=== PATIENT | male | born 1955 ===

== ENCOUNTER → 2016-05-06 | Outpatient (CLI) | payer BC ==
--- NOTE | 2016-05-06 17:01 | DX ---
Right Hip, Two Views History: Acute right hip pain. Findings: No acute fracture or dislocation identified. The right hip demonstrates no evidence of a definite femoral head or neck fracture. No significant joint space narrowing. 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 The sacroiliac joints are unremarkable. Mild degen erative disk disease at L4-L5, with osteophytes. No destructive osseous lesions. Impressions 1. No definite right hip fracture. 2. No significant degenerative changes of the right hip.
== END ==
LOC: CIMAGING 15:22
PROVIDERS: ATTEND Internal Medicine
DX: M25.551 Pain in right hip (principal)
CPT/HCPCS: 73502-PO

== ENCOUNTER → 2017-08-15 | Outpatient (CLI) | payer BC | LOC: CIMAGING 12:12 | PROVIDERS: ATTEND Internal Medicine | DX: J45.909 Unspecified asthma, uncomplicated (principal) | CPT/HCPCS: 71046-PO ==